=== PATIENT | female | born 2000 | race African-American/Black ===

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

== ENCOUNTER 2022-04-11 18:23 | Emergency (ER) | payer MEDICAID ==
[~2022-04-11 18:23] MED LIST changes: +FIORICET PO; +NAPROXEN500 MG PO
== END 2022-04-11 21:15 | disposition left against medical advice (07) | DRG 951 ==
LOC: ED 18:23 → LWOBS 21:15
DX: Z53.21 Procedure and treatment not carried out due to patient leaving prior to being seen by health care provider (principal)

== ENCOUNTER 2022-04-30 08:27 | Emergency (ER) | payer MEDICAID ==
[~2022-04-30] VITALS: Ht 172.7 cm; Wt 79.5 kg
[2022-04-30 08:45] VITALS: BP 114/73
[2022-04-30 09:00] VITALS: BP 125/102
[2022-04-30 10:30] VITALS: BP 114/62
[2022-04-30 10:32] VITALS: BP 114/62
== END 2022-04-30 10:45 | disposition home or self-care (01) ==
LOC: ED 08:27
DX: S93.402A Sprain of unspecified ligament of left ankle, initial encounter (principal); J45.909 Unspecified asthma, uncomplicated; F17.200 Nicotine dependence, unspecified, uncomplicated; X50.0XXA Overexertion from strenuous movement or load, initial encounter; Y93.89 Activity, other specified; Y92.89 Other specified places as the place of occurrence of the external cause; Y99.0 Civilian activity done for income or pay

== ENCOUNTER 2023-06-08 07:47 | Emergency (ER) | payer MEDICAID ==
[~2023-06-08] VITALS: Ht 172.7 cm; Wt 86.0 kg
[~2023-06-08 07:47] MED LIST changes: +IMODIUM2 MG PO; +ONDANSETRON4 MG PO
[2023-06-08 08:00] VITALS: BP 102/65
[2023-06-08 08:15] VITALS: BP 103/57
[2023-06-08 08:30] VITALS: BP 101/75
[2023-06-08 08:45] VITALS: BP 104/52
[2023-06-08] MEDS ORDERED: ZPAK PO (09:09)
[2023-06-08 09:53] VITALS: BP 104/52
== END 2023-06-08 10:05 | disposition home or self-care (01) ==
LOC: ED 07:47
DX: R05.9 Cough, unspecified (principal); J02.9 Acute pharyngitis, unspecified; J45.909 Unspecified asthma, uncomplicated; Z20.822 Contact with and (suspected) exposure to COVID-19